=== PATIENT | male | born 1980 | race Caucasian/White ===

== ENCOUNTER 2023-10-25 21:53 | Emergency (ER) | payer OTHER, SELFPAY ==
[2023-10-25 21:58] VITALS: BP 142/86
--- NOTE | 2023-10-25 22:23 | ED.GENMED ---
History of Present Illness
General
Chief Complaint: Skin Surface Trauma
Source: patient
Time Seen by Provider: 10/25/23 22:09
History of Present Illness
History of Present Illness:
43-year-old male presenting emergency department for evaluation after dropping a heavy piece of wood onto the left great toe which also had a shila nail at the bottom portion that punctured the dorsal surface of the skin. Patient is unsure of his
last tetanus. No other injuries were sustained. He notes a constant throbbing sensation to the toe that increases while ambulating or putting direct pressure. Denies any previous history of injury or surgery.
Past History
Past History
ED Past Medical History: Other (Nephrolithiasis)
ED Past Surgical History: Urological (Ureter Stent)
Patient has exhibited threatening behavior?: No
Social History
Tobacco: Non-smoker
Alcohol: None
Drug: None
Personal:
Living: with family
Employment: Employed
Family History
Family History: Hypertension
Review of Systems
Review of Systems
All Other Systems: ROS reviewed and negative except as documented in HPI and ROS
Phy Exam
Physical Exam
Physical Exam:
GENERAL: Alert , in no apparent distress
EYE: conjunctiva clear
Head: Normocephalic atraumatic
NECK: Supple,
ENT: mmm.
LUNGS: no acute respiratory distress
NEUROLOGICAL: Alert and oriented
SKIN: Warm and dry, very small puncture wound at the dorsal aspect base of the proximal phalanx. No active bleeding. Very mild soft tissue swelling
MUSCULOSKELETAL: well perfused.
PSYCH: Normal and appropriate interaction.
Scores
Heart Failure Risk
Heart Failure Risk Score: Not Applicable
Heart Score for Chest Pain Patients
STEMI patient?: Not applicable
Withdrawal Assessment of Alcohol
Withdrawal Assessment Completed?: Not applicable
Course
Orders/Labs/Results
Orders:
Orders
10/25/23 22:03
Toes 2 Views, Left CR [CR Toe(s) Min 2 Vw Left] Urgent
Comment:
Reason For Exam: finishing nail stabbed the patients great toe
Indicate Which Toe:: Great
10/25/23 22:23
Cephalexin Monohydrate [Keflex] 500 mg PO NOW STA
Tetanus/Diphth/Acelpertussis [Adacel] 0.5 ml IM .ONCE ONE
Vital Signs
Initial and Last Documented VS:
Initial Vital Signs
Temp Pulse Resp BP Pulse Ox
97.6 F 82 18 142/86 100
10/25/23 21:58 10/25/23 21:58 10/25/23 21:58 10/25/23 21:58 10/25/23 21:58
Last Documented Vital Signs
Temp Pulse Resp BP Pulse Ox
97.6 F 82 18 142/86 100
10/25/23 21:58 10/25/23 21:58 10/25/23 21:58 10/25/23 21:58 10/25/23 21:58
MDM/Problems Addressed
Differential Diagnosis Includes:
Contusion, puncture wound, foreign body, fracture
MDM/Problems Addressed:
43-year-old male present emergency department after dropping heavy piece of wood onto the left great toe. Toes slightly punctured by a rusted nail. Will update patient's tetanus as he is unsure of his last update. X-ray was ordered from triage
and is negative for fracture or foreign body. Will cover with Keflex given the puncture. Patient advised on wound care. RICE recommendations, Motrin/Tylenol as needed. Stable for discharge
*Radiology
Radiology exam reviewed: preliminary read by ED provider (No acute fracture or foreign bodies)
*Pulse Oximetry
Patient hypoxic: no
*Critical Care Note
Total Time (30-74mins, 75-104mins- exclusive of procedures): Not Applicable
ED Attending Note
-
Portions of this chart may have been created with voice recognition software.� Occasional wrong word or��sound alike� substitutions may have occurred due to the inherent limitations of voice recognition software.
Discharge Plan
Departure
Patient Disposition: Home (Routine Discharge)
Date of Disposition: 10/25/23
Time of Disposition: 22:23
Patient with high blood pressure during this ER visit?: Yes
Discharge Problem:
Contusion of great toe, left
Instructions: Contusion
Prescriptions:
New
cephalexin 500 mg tablet
500 mg PO BID 5 Days Qty: 9 0RF
No Action
ibuprofen 600 MG tablet
600 mg PO Q8HPRN PRN (Reason: pain)
tamsulosin 0.4 MG capsule
0.4 mg PO DAILY
oxybutynin chloride 5 MG tablet
5 mg PO Q8HPRN PRN (Reason: urinary pain)
phenazopyridine 200 MG tablet
200 mg PO TID Qty: 15 0RF
ibuprofen 600 MG tablet
600 mg PO Q6HPRN PRN (Reason: pain) Qty: 30 0RF
cephalexin 500 mg capsule
500 mg PO BID 7 Days Qty: 14 0RF
Discharge Date and Time
Print Language: NAMIBIAN
[2023-10-25] MEDS: KEFLEX 500 MG PO (22:28)
[2023-10-25] MEDS: ADACEL 0.5 ML IM (22:29)
== END 2023-10-25 22:44 | disposition home or self-care (01) ==
LOC: EMR 21:53
PROVIDERS: EMERGENCY PHYSICIAN Emergency Medicine; FAMILY PHYSICIAN Family Medicine
DX: S91.132A Puncture wound without foreign body of left great toe without damage to nail, initial encounter (principal); S90.112A Contusion of left great toe without damage to nail, initial encounter; W20.8XXA Other cause of strike by thrown, projected or falling object, initial encounter; Z23 Encounter for immunization; R03.0 Elevated blood-pressure reading, without diagnosis of hypertension; Z88.5 Allergy status to narcotic agent
CPT/HCPCS: 99283; 90471; 73660; 90715

== ENCOUNTER 2024-01-19 08:20 | Emergency (ER) | payer OTHER, SELFPAY ==
[2024-01-19 08:23] VITALS: BP 143/83
--- NOTE | 2024-01-19 09:03 | ED.GENMED ---
History of Present Illness
<Mely Delgado PA-C - Last Filed: 01/19/24 17:30>
General
Chief Complaint: Cold/Flu/URI Symptoms
Source: patient
Exam Limitations: none
Time Seen by Provider: 01/19/24 08:59
Nursing documentation reviewed up to this point in time: agreed with
History of Present Illness
History of Present Illness:
43-year-old male with past medical history of presents presents emergency department today with concerns of weakness, sore throat, persistent cough for the past week. Patient also notes that he has had some left-sided ear pain as well associated
with this. Patient says he has some mild nausea but no vomiting, no abdominal pain. Patient denies any constipation or diarrhea. Patient also notes some increased urinary frequency as well as some mild burning with urination. Patient denies any
hematuria. Patient denies any flank pain or groin pain, denies any chance of STDs or STIs. Also notes some chest pressure with this on and off and left-sided arm pain which comes and goes. He has not had any fevers at home. Of note, his daughter
recently tested positive for mono. Patient denies any breath. Patient has not take anything today for symptoms.
Past History
<Mely Delgado PA-C - Last Filed: 01/19/24 17:30>
Past History
ED Past Medical History: Other (Nephrolithiasis)
ED Past Surgical History: Urological (Ureter Stent)
Patient has exhibited threatening behavior?: No
Social History
Tobacco: Non-smoker
Alcohol: None
Drug: None
Personal:
Living: with family
Employment: Employed
Family History
Family History: Hypertension
Review of Systems
<Mely Delgado PA-C - Last Filed: 01/19/24 17:30>
Review of Systems
All Other Systems: ROS reviewed and negative except as documented in HPI and ROS
Phy Exam
<Mely Delgado PA-C - Last Filed: 01/19/24 17:30>
Physical Exam
Physical Exam:
General: Patient is in no acute distress, nontoxic
Skin: Warm and dry, no rashes or lesions
Head: Normocephalic, atraumatic
Eyes: Sclera non-icteric. EOMs intact. PERRLA.
Ears: Bilateral external auditory canals clear, left TM mildly erythematous with no bulging, no signs of effusion, no mastoid tenderness
Mouth: No intraoral lesions, pharyngeal erythema noted, uvula midline
Neck: No cervical lymphadenopathy
Cardiac: Regular rate and rhythm, no murmurs
Peripheral Vascular: No lower extremity swelling or edema
Pulm: Normal respiratory effort, scattered rhonchi heard throughout
Abdomen: No abdominal tenderness to palpation
Neuro: CN II-XII intact, no focal neurologic deficits.
Psychiatric: Appropriate mood and affect.
Course
<Mely Delgado PA-C - Last Filed: 01/19/24 17:30>
Orders/Labs/Results
Orders:
Orders
01/19/24 09:17
Electrocardiogram (*1) Urgent
Reason for Study: Chest Pain
EKG- Treatment ONCE
CR Chest - 2 Views Urgent
Comment:
Reason For Exam: chest pressure
01/19/24 09:30
COVID-19 Antigen Urgent
Source: Nasal Swab
Complete Blood Count/With Diff Urgent
Comprehensive Metabolic Panel Urgent
Monotest Urgent
Influenza A+B Rapid Molecular Urgent
BER[facility] Source: Nasal Swab
Specimen Description:
Rapid Strep Group A Urgent
BER[facility]ANE Source: Throat/Pharynx
Specimen Description:
Date Specimen was Collected: 01/19/24
Time Specimen was Collected: 09:27
01/19/24 09:44
Urinalysis Reflex To Culture Urgent
Date Specimen was Collected: 01/19/24
Time Specimen was Collected: 09:42
01/19/24 09:45
Acetaminophen [Tylenol] 650 mg PO NOW STA
01/19/24 10:28
0.9% Sodium Chloride 500 ml [Nss] 500 ml IV BOLUS
Dexamethasone Sod Phosphate [Decadron] 10 mg IV NOW STA
01/19/24 10:36
Ketorolac [Toradol] 30 mg IV NOW STA
Abnormal Lab Results
01/19/24
09:30
Absolute Monos (auto) 0.8 H 10^3/uL
(0.1-0.6)
Lymphocytes % 16.9 L %
(20.5-51.1)
Total Bilirubin 1.4 H mg/dl
(0.2-1.3)
01/19/24 09:30
01/19/24 09:30
Vital Signs
Initial and Last Documented VS:
Initial Vital Signs
Temp Pulse Resp BP Pulse Ox
98.0 F 85 18 143/83 98
01/19/24 08:23 01/19/24 08:23 01/19/24 08:23 01/19/24 08:23 01/19/24 08:23
Last Documented Vital Signs
Temp Pulse Resp BP Pulse Ox
98.0 F 60 16 129/79 98
01/19/24 08:23 01/19/24 10:41 01/19/24 10:41 01/19/24 10:41 01/19/24 10:41
<Mat Watt, DO - Last Filed: 01/19/24 10:37>
Orders/Labs/Results
Orders:
Orders
01/19/24 09:17
Electrocardiogram (*1) Urgent
Reason for Study: Chest Pain
EKG- Treatment ONCE
CR Chest - 2 Views Urgent
Comment:
Reason For Exam: chest pressure
01/19/24 09:30
COVID-19 Antigen Urgent
Source: Nasal Swab
Complete Blood Count/With Diff Urgent
Comprehensive Metabolic Panel Urgent
Monotest Urgent
Influenza A+B Rapid Molecular Urgent
[facility] Source: Nasal Swab
Specimen Description:
Rapid Strep Group A Urgent
[facility] Source: Throat/Pharynx
Specimen Description:
Date Specimen was Collected: 01/19/24
Time Specimen was Collected: 09:27
01/19/24 09:44
Urinalysis Reflex To Culture Urgent
Date Specimen was Collected: 01/19/24
Time Specimen was Collected: 09:42
01/19/24 09:45
Acetaminophen [Tylenol] 650 mg PO NOW STA
01/19/24 10:28
0.9% Sodium Chloride 500 ml [Nss] 500 ml IV BOLUS
Dexamethasone Sod Phosphate [Decadron] 10 mg IV NOW STA
01/19/24 10:36
Ketorolac [Toradol] 30 mg IV NOW STA
Abnormal Lab Results
01/19/24
09:30
Absolute Monos (auto) 0.8 H 10^3/uL
(0.1-0.6)
Lymphocytes % 16.9 L %
(20.5-51.1)
Total Bilirubin 1.4 H mg/dl
(0.2-1.3)
01/19/24 09:30
01/19/24 09:30
Vital Signs
Initial and Last Documented VS:
Initial Vital Signs
Temp Pulse Resp BP Pulse Ox
98.0 F 85 18 143/83 98
01/19/24 08:23 01/19/24 08:23 01/19/24 08:23 01/19/24 08:23 01/19/24 08:23
Last Documented Vital Signs
Temp Pulse Resp BP Pulse Ox
98.0 F 60 16 129/79 98
01/19/24 08:23 01/19/24 10:41 01/19/24 10:41 01/19/24 10:41 01/19/24 10:41
<Mely Delgado PA-C - Last Filed: 01/19/24 17:30>
MDM/Problems Addressed
Differential Diagnosis Includes:
Differentials include COVID-19, influenza, mononucleosis, acute bronchitis, community acquired pneumonia
MDM/Problems Addressed:
43-year-old male presents emergency department today with complaints of URI symptoms, headache, and generalized weakness. Of note, his daughter recently tested positive for mono. Patient also notes some urinary frequency. On exam, he is
nontoxic-appearing, does have some mild erythema in the left TM with no bulging to perforation, with no mastoid tenderness. Listening to his lungs he does have scattered rhonchi. Today, his CBC and CMP are unremarkable. In light of his urinary
symptoms, urinalysis was obtained but is negative for infection. His CXR does not show any evidence of pneumonia. Considering the length of his illness and his erythematous left TM, will send Augmentin to his pharmacy. Return precautions discussed.
Patient stable for discharge.
Chronic conditions affecting care:
n/a
Acute Exacerbation and/or Progression of Chronic Illness:
n/a
<Mely Delgado PA-C - Last Filed: 01/19/24 17:30>
*Critical Care Note
Total Time (30-74mins, 75-104mins- exclusive of procedures): Not Applicable
ED Attending Note
<Mely Delgado PA-C - Last Filed: 01/19/24 17:30>
-
Portions of this chart may have been created with voice recognition software.� Occasional wrong word or��sound alike� substitutions may have occurred due to the inherent limitations of voice recognition software.
<Mat Watt DO - Last Filed: 01/19/24 10:37>
ED Attending Note
Patient seen and examined by attending physician: Yes
I performed the substantive portion of visit, reviewed & personally made and approve the management plan that is documented in note by myself or AAKASH.: Yes
ED Attending Note:
Seen with PA examined independently 43-year-old male with sore throat fatigue cough dizziness fevers pain in his chest sharp pain in his left arm to his left small finger which preceded his infectious symptoms, labs are noted EKG noted, chest x-ray
noted significant feeling better
Discharge Plan
Departure
Patient Disposition: Home (Routine Discharge)
Date of Disposition: 01/19/24
Time of Disposition: 11:33
Patient with high blood pressure during this ER visit?: Yes
Condition: Good
Discharge Problem:
Acute bronchitis, Pain in left ear
Instructions: Acute Bronchitis, Adult (DC), Fever, Adult (DC)
Prescriptions:
New
amoxicillin-pot clavulanate 875-125 mg tablet
1 tab PO BID 5 Days Qty: 10 0RF
No Action
ibuprofen 600 MG tablet
600 mg PO Q8HPRN PRN (Reason: pain)
tamsulosin 0.4 MG capsule
0.4 mg PO DAILY
oxybutynin chloride 5 MG tablet
5 mg PO Q8HPRN PRN (Reason: urinary pain)
phenazopyridine 200 MG tablet
200 mg PO TID Qty: 15 0RF
ibuprofen 600 MG tablet
600 mg PO Q6HPRN PRN (Reason: pain) Qty: 30 0RF
cephalexin 500 mg capsule
500 mg PO BID 7 Days Qty: 14 0RF
cephalexin 500 mg tablet
500 mg PO BID 5 Days Qty: 9 0RF
Referrals:
Marcio Garcia MD [Family Provider] -
Stand Alone Forms: Return to Work
Activity Restrictions/Additional Instructions:
Today you tested negative for COVID and mono, your urine test did not show any evidence of infection
An antibiotic has been sent to your pharmacy. It is called Augmentin, please take 1 tablet twice daily for 5 days.
Please return to the emergency department should you experience chest pain, shortness of breath, neck pain, persistent headache, pain behind the ear, or any other signs or symptoms concerning to you.
Interventions
Interventions:
*Risk Screen - Suicide Last Done: 01/19/24 08:26
*General Assessment Last Done: 01/19/24 08:26
*Neglect/Abuse Screening Last Done: 01/19/24 11:33
*ED COVID-19 Vaccine History Last Done: 01/19/24 08:26
*Nursing Disposition Last Done: 01/19/24 12:11
ED- Pulmonary Assessment Last Done: 01/19/24 09:53
Discharge Date and Time
Discharge Date/Time: 01/19/24 12:11
Print Language: UKRAINIAN
[2024-01-19 09:33] VITALS: BMI 29.8
[2024-01-19 09:39] LABS: % Basophils 0.8 % (0-2); % Eosinophils 4.1 % (0-6); % Immature Granulocytes 0.3 % (0-0.5); % Lymphocytes 16.9 % (20.5-51.1); % Monocytes 8.5 % (1.7-9.3); % Neutrophils 69.4 % (42.2-75.2); Absolute Basophils 0.1 10^3/uL (0-0.2); Absolute Eosinophils 0.4 10^3/uL (0-0.7); Absolute Lymphocytes 1.6 10^3/uL (1.2-3.4); Absolute Monocytes 0.8 10^3/uL (0.1-0.6); Absolute Neutrophils 6.4 10^3/uL (1.4-6.5); Hematocrit 39.8 % (39.0-52.0); Hemoglobin 13.9 g/dL (13.0-18.0); Mean Corp Hgb Conc. 34.9 g/dL (33.0-37.0); Mean Corpuscular Hgb 29.3 pg (27.0-31.0); Mean Platelet Volume 9.8 fL (7.4-10.4); Nucleated Red Blood Cells % 0 % (-); Platelet Count 245 10^3/uL (130-400); Red Blood Cell Count 4.74 10^6/uL (4.70-6.10); Red Cell Dist. Width 12.8 % (11.5-14.5); White Blood Cell Count 9.2 10^3/uL (4.8-10.8)
[2024-01-19] MEDS: TYLENOL 650 MG PO (09:47)
[2024-01-19 09:58] LABS: COVID-19 Antigen Negative (Negative)
[2024-01-19 09:59] LABS: Urine Albumin Negative (Neg - Trace); Urine Bilirubin Negative (Negative); Urine Character Clear (Clear); Urine Color Yellow; Urine Glucose Negative (Negative); Urine Ketone Negative (Negative); Urine Leukocyte Negative (Negative); Urine Nitrite Negative (Negative); Urine Occult Blood Negative (Negative); Urine Urobilinogen Negative (Neg - 1+); Urine pH 6.5 (5.0-9.0)
[2024-01-19 10:01] LABS: ALT (SGPT) 47 U/L (0-50); AST (SGOT) 34 U/L (17-59); Albumin 4.6 g/dl (3.5-5.0); Alkaline Phosphatase 85 U/L (38-126); Blood Urea Nitrogen 14 mg/dl (9-20); Calcium 9.7 mg/dl (8.4-10.2); Carbon Dioxide 27 mmol/L (22-30); Chloride 102 mmol/L (98-107); Estimated Creatinine Clearance 109 ml/min; Glucose 77 mg/dl (70-99); Sodium 142 mmol/L (135-145); Total Bilirubin 1.4 mg/dl (0.2-1.3); eGFR > 60.00
[2024-01-19 10:22] LABS: Monotest Negative (Negative)
[2024-01-19 10:41] VITALS: BP 129/79
[2024-01-19] MEDS: DECADRON 10 MG IV (10:52)
[2024-01-19] MEDS: TORADOL 30 MG IV (10:52)
[2024-01-19] MEDS: NSS 500 IV (10:53)
== END 2024-01-19 12:11 | disposition home or self-care (01) ==
LOC: EMR 08:20
PROVIDERS: Physician Assistant; EMERGENCY PHYSICIAN Emergency Medicine; FAMILY PHYSICIAN Family Medicine
DX: J20.9 Acute bronchitis, unspecified (principal); H92.02 Otalgia, left ear; R53.1 Weakness; R07.89 Other chest pain; R53.83 Other fatigue; R42 Dizziness and giddiness; M79.602 Pain in left arm; R11.0 Nausea; R51.9 Headache, unspecified; R35.0 Frequency of micturition; R30.9 Painful micturition, unspecified; Z11.52 Encounter for screening for COVID-19; R03.0 Elevated blood-pressure reading, without diagnosis of hypertension; Z20.89 Contact with and (suspected) exposure to other communicable diseases; Z87.442 Personal history of urinary calculi; Z88.5 Allergy status to narcotic agent
CPT/HCPCS: 99284; 96374; 96375; 96361; 71046; 80053; 81003; 85025; 86308; 87070; 87502; 87811; 87880; 93005

== ENCOUNTER 2024-07-22 20:41 | Emergency (ER) | payer BC, SELFPAY ==
[2024-07-22 20:44] VITALS: BP 179/119
[2024-07-22 21:12] LABS: % Eosinophils 5.1 % (0-6); % Immature Granulocytes 0.1 % (0-0.5); % Lymphocytes 40.9 % (20.5-51.1); % Monocytes 7.1 % (1.7-9.3); % Neutrophils 45.8 % (42.2-75.2); Absolute Basophils 0.1 10^3/uL (0-0.2); Absolute Eosinophils 0.4 10^3/uL (0-0.7); Absolute Lymphocytes 3.2 10^3/uL (1.2-3.4); Absolute Monocytes 0.6 10^3/uL (0.1-0.6); Absolute Neutrophils 3.6 10^3/uL (1.4-6.5); Hematocrit 39.4 % (39.0-52.0); Hemoglobin 13.8 g/dL (13.0-18.0); Mean Corpuscular Hgb 29.8 pg (27.0-31.0); Mean Corpuscular Volume 85.1 fL (80.0-94.0); Mean Platelet Volume 9.5 fL (7.4-10.4); Nucleated Red Blood Cells % 0 % (-); Platelet Count 235 10^3/uL (130-400); Red Blood Cell Count 4.63 10^6/uL (4.70-6.10); Red Cell Dist. Width 12.9 % (11.5-14.5); White Blood Cell Count 7.8 10^3/uL (4.8-10.8)
[2024-07-22 21:26] LABS: Lactic Acid 1.2 mmol/L (0.7-2.0)
[2024-07-22 21:30] LABS: ALT (SGPT) 49 U/L (0-50); AST (SGOT) 28 U/L (17-59); Albumin 4.9 g/dl (3.5-5.0); Alkaline Phosphatase 100 U/L (38-126); Blood Urea Nitrogen 25 mg/dl (9-20); Calcium 10.4 mg/dl (8.4-10.2); Carbon Dioxide 26 mmol/L (22-30); Chloride 104 mmol/L (98-107); Glucose 116 mg/dl (70-99); Potassium 4.2 mmol/L (3.5-5.1); Sodium 140 mmol/L (135-145); Total Bilirubin 0.9 mg/dl (0.2-1.3); Total Protein 7.2 g/dl (6.3-8.2); eGFR > 60.00
[2024-07-22 21:31] LABS: Lipase 134 U/L (23-300)
--- NOTE | 2024-07-23 00:05 | ED.GENMED ---
History of Present Illness
General
Chief Complaint: Abdominal Pain
Time Seen by Provider: 07/23/24 00:05
History of Present Illness
History of Present Illness:
TIME OF INITIAL ENCOUNTER: 12:05 AM
HPI: The patient presents with abdominal pain. He has pain primarily in the upper abdomen but also radiates down to the right lower abdomen. He has some intermittent nausea. He has had kidney stones in the past but this does not feel like a
kidney stone to him. He has some pain into the testicular region as well. The symptoms have been ongoing for the past several weeks. He feels a sensation of abdominal bloating as well.
EXAM:
GENERAL: Well appearing in no distress, hypertensive
HEENT: Moist oral mucosa
CARDIOVASCULAR: No murmurs, normal heart rate, regular rhythm, No chest wall tenderness
PULMONARY: No respiratory distress, breath sounds are clear and equal
ABDOMEN: Soft with no peritoneal signs, very mild diffuse abdominal tenderness, the pain seems to worsen when he flexes at the torso
: No testicular tenderness
NEUROLOGIC: Excellent strength all extremities, no coordination deficits
PSYCHIATRIC: Appropriate mental status, normal insight and judgement
EXTREMITIES: Nontender, no edema, moves all extremities equally
SKIN: No rash, no lesions
NUMBER AND COMPLEXITY OF PROBLEMS ADDRESSED AT THE ENCOUNTER
� Chronic conditions affecting care: Kidney stones with ureteral stents
� Acute Exacerbation and/or Progression of Chronic Illness: This is an acute problem
� Differential Diagnosis includes: Ureteral stone/colic, UTI, pyelonephritis, pancreatitis, biliary colic/cholecystitis, musculoskeletal etiology
AMOUNT AND/OR COMPLEXITY OF DATA TO BE REVIEWED AND ANALYZED
� I performed an independent evaluation of and my interpretation is:
EKG:
CT: I personally reviewed CT imaging and see no acute abnormality
X-rays:
Laboratory Studies: White count 7.8, hemoglobin normal, chemistries unremarkable, lactic 1.2, lipase normal
Other:
� Review of other/old records: I reviewed records, the patient was seen here with bronchitis in January 2024
� Clinical information was obtained by an independent historian: I spoke to at bedside
� Prescriptions/Medications Considered but not given:
� Further testing considered but not performed:
RISK OF COMPLICATIONS AND/OR MORBIDITY OR MORTALITY OF PATIENT MANAGEMENT
� Social determinants of health affecting care: Lives at home
� Discussion with other providers:
� Escalation of care including admission/observation vs risk of discharge considered: Lab work is unremarkable. Urinalysis shows no sign of infection or blood. CT imaging obtained. Will try Toradol, Zofran, and fluids. He has
an unremarkable testicular examination. He appears fairly comfortable. He had only minimal tenderness on examination.
ANY OTHER UPDATES:
3 AM: The patient reports some improvement after Toradol was given. Unclear etiology of patient's symptoms., Musculoskeletal etiology
Past History
Past History
ED Past Medical History: Other (Nephrolithiasis)
ED Past Surgical History: Urological (Ureter Stent)
Patient has exhibited threatening behavior?: No
Social History
Tobacco: Non-smoker
Alcohol: None
Drug: None
Personal:
Living: with family
Employment: Employed
Family History
Family History: Hypertension
Phy Exam
Physical Exam
Physical Exam:
See HPI
Course
Orders/Labs/Results
Orders:
Orders
07/22/24 20:58
Complete Blood Count/With Diff Urgent
Comprehensive Metabolic Panel Urgent
Lactic Acid Urgent
Lipase Urgent
07/23/24 00:19
Urine Reflex Culture from [facility] [Urinalysis Reflex To Culture] Urgent
Date Specimen was Collected: 07/23/24
Time Specimen was Collected: 00:14
07/23/24 00:35
CT Abd/pelvis W Iv Cont Urgent
Comment:
Reason For Exam: diffuse pain; more on R
0.9% Sodium Chloride 1000 ml [Nss] 1,000 ml IV BOLUS
Ketorolac [Toradol] 15 mg IV NOW STA
Ondansetron Injectable [Zofran] 4 mg IV NOW STA
Abnormal Lab Results
07/22/24
20:58
RBC 4.63 L 10^6/uL
(4.70-6.10)
BUN 25 H mg/dl
(9-20)
Glucose 116 H mg/dl
(70-99)
Calcium 10.4 H mg/dl
(8.4-10.2)
07/22/24 20:58
07/22/24 20:58
Vital Signs
Initial and Last Documented VS:
Initial Vital Signs
Temp Pulse Resp BP Pulse Ox
36.6 C 66 20 179/119 98
07/22/24 20:44 07/22/24 20:44 07/22/24 20:44 07/22/24 20:44 07/22/24 20:44
Last Documented Vital Signs
Temp Pulse Resp BP Pulse Ox
36.6 C 66 20 124/64 95
07/22/24 20:44 07/22/24 20:44 07/22/24 20:44 07/23/24 01:00 07/23/24 01:30
*Critical Care Note
Total Time (30-74mins, 75-104mins- exclusive of procedures): Not Applicable
ED Attending Note
-
Portions of this chart may have been created with voice recognition software.� Occasional wrong word or��sound alike� substitutions may have occurred due to the inherent limitations of voice recognition software.
Discharge Plan
Departure
Prescriptions:
No Action
ibuprofen 600 MG tablet
600 mg PO Q6HPRN PRN (Reason: pain) Qty: 30 0RF
Referrals:
Marcio Garcia MD [Family Provider] -
Interventions
Interventions:
*Risk Screen - Suicide Last Done: 07/23/24 00:30
*General Assessment Last Done: 07/22/24 20:44
*ED- Fall Risk Assessment Last Done: 07/23/24 00:15
*ED COVID-19 Vaccine History Last Done: 07/23/24 00:15
WC-Nzrrub-Bhaykbdsjx Assessment Last Done: 07/23/24 00:30
Discharge Date and Time
Print Language: YORUBA
[2024-07-23 00:15] VITALS: BMI 31.5
[2024-07-23 00:19] VITALS: BP 130/112
[2024-07-23 00:50] LABS: Urine Albumin Negative (Neg - Trace); Urine Bilirubin Negative (Negative); Urine Character Clear (Clear); Urine Color Yellow; Urine Glucose Negative (Negative); Urine Ketone Negative (Negative); Urine Leukocyte Negative (Negative); Urine Nitrite Negative (Negative); Urine Occult Blood Negative (Negative); Urine Specific Gravity 1.025 (<1.030); Urine Urobilinogen Negative (Neg - 1+)
[2024-07-23] MEDS: TORADOL 15 MG IV (00:54)
[2024-07-23] MEDS: ZOFRAN 4 MG IV (00:54)
[2024-07-23] MEDS: NSS 1000 IV (00:54)
[2024-07-23 01:00] VITALS: BP 124/64
[2024-07-23 03:21] VITALS: BP 122/68
== END 2024-07-23 03:22 | disposition home or self-care (01) ==
LOC: EMR 20:41
PROVIDERS: Emergency Medicine; EMERGENCY PHYSICIAN Emergency Medicine; FAMILY PHYSICIAN Family Medicine
DX: N20.0 Calculus of kidney (principal); R11.0 Nausea; R10.31 Right lower quadrant pain
CPT/HCPCS: 96374; 96375; 96361; 99284; 74177; 80053; 81003; 83605; 83690; 85025; Q9967

== ENCOUNTER 2024-08-17 17:16 | Emergency (ER) | payer BC, SELFPAY ==
[2024-08-17 17:21] VITALS: BP 140/82
--- NOTE | 2024-08-17 20:03 | ED.GENMED ---
History of Present Illness
General
Chief Complaint: Eye Problems
Source: patient
Exam Limitations: none
Time Seen by Provider: 08/17/24 19:03
History of Present Illness
History of Present Illness:
Patient poked in the eye with a pressure brush. Did not whip into his eye he leaned into it. Complaining of pain and photophobia. No other injury or complaint
Past History
Past History
ED Past Medical History: Other (Nephrolithiasis)
ED Past Surgical History: Urological (Ureter Stent)
Patient has exhibited threatening behavior?: No
Social History
Tobacco: Non-smoker
Alcohol: None
Drug: None
Personal:
Living: with family
Employment: Employed
Family History
Family History: Hypertension
Review of Systems
Review of Systems
All Other Systems: Not applicable
Phy Exam
Physical Exam
Physical Exam:
General: Nontoxic appearing in no distress
Skin: Warm and dry, no rash
Neuro: Alert, nontoxic, grossly nonfocal
Psychiatric: Good eye contact and appropriate
Eye: Patient with some tearing. Rubbing the left eye with a cough. Orbit grossly normal.
Minimal conjunctival injection. No hyphema. No obvious globe rupture. No foreign body grossly. Some consensual pain with light. Pupils equal and reactive to light. Extraocular muscles intact.
Slit lamp exam with a positive fluorescein of a small superficial central abrasion. No obvious flare in cell. No foreign body. No hyphema.
Course
Orders/Labs/Results
Orders:
Orders
08/17/24 19:58
Cyclopentolate 1% [Cyclogyl 1% Eye Drops] See Dose Instructions OPHTH ONCE ONE
08/17/24 19:59
Ciprofloxacin HCl [Ciloxan 0.3% Ophthalmic Solution] See Dose Instructions OPHTH NOW STA
Vital Signs
Initial and Last Documented VS:
Initial Vital Signs
Temp Pulse Resp BP Pulse Ox
98.4 F 81 16 140/82 96
08/17/24 17:21 08/17/24 17:21 08/17/24 17:21 08/17/24 17:21 08/17/24 17:21
Last Documented Vital Signs
Temp Pulse Resp BP Pulse Ox
98.4 F 81 16 140/82 96
08/17/24 17:21 08/17/24 17:21 08/17/24 17:21 08/17/24 17:21 08/17/24 17:21
*Critical Care Note
Total Time (30-74mins, 75-104mins- exclusive of procedures): Not Applicable
Update Note
Update Note:
Traumatic iritis/corneal abrasion. Discussed with ophthalmology. Cyclogyl Cipro drops and follow-up tomorrow or
ED Attending Note
-
Portions of this chart may have been created with voice recognition software.� Occasional wrong word or��sound alike� substitutions may have occurred due to the inherent limitations of voice recognition software.
Discharge Plan
Departure
Patient Disposition: Home (Routine Discharge)
Date of Disposition: 08/17/24
Time of Disposition: 20:05
Patient with high blood pressure during this ER visit?: Yes
Discharge Problem:
Corneal abrasion/traumatic iritis
Instructions: Corneal Abrasion (DC), Uveitis (DC)
Prescriptions:
No Action
ibuprofen 600 MG tablet
600 mg PO Q6HPRN PRN (Reason: pain) Qty: 30 0RF
Referrals:
Harriett Lu MD [Active] - Tomorrow
Marcio Garcia MD [Family Provider] -
Activity Restrictions/Additional Instructions:
Use Cyclogyl 3 times per day
Use Cipro drops every 3-4 hours
The ophthalmology group should call you first thing in the morning for recheck tomorrow. If they have not called by 9 or 10:00 please call them
Interventions
Interventions:
*Risk Screen - Suicide Last Done: 08/17/24 17:21
*General Assessment Last Done: 08/17/24 17:21
Discharge Date and Time
Print Language: SAO TOMEAN
[2024-08-17] MEDS: CYCLOGYL 1% EYE DROPS 1 DROP OPHTH (20:33)
[2024-08-17] MEDS: CILOXAN 0.3% OPHTHALMIC SOLUTION 1 DROP OPHTH (20:33)
== END 2024-08-17 20:35 | disposition home or self-care (01) ==
LOC: EMR 17:16
PROVIDERS: EMERGENCY PHYSICIAN Emergency Medicine; FAMILY PHYSICIAN Family Medicine
DX: S05.02XA Injury of conjunctiva and corneal abrasion without foreign body, left eye, initial encounter (principal); H20.00 Unspecified acute and subacute iridocyclitis; W22.8XXA Striking against or struck by other objects, initial encounter; R03.0 Elevated blood-pressure reading, without diagnosis of hypertension
CPT/HCPCS: 99283